=== PATIENT | female | born 1990 | race Caucasian/White ===

== ENCOUNTER → 2021-08-01 | Day surgery (SDC) | payer OTHER ==
[~2021-08-01] VITALS: Ht 152.4 cm; Wt 63.5 kg
[2021-08-01 09:43] LABS: BASOPHIL 1.1 % (0-2); EOSINOPHIL 3.2 % (0-5); HGB 13.8 g/dl (12.5-16.0); LYMPHOCYTE 30.2 % (15-48); MCH 30.7 pg (25.0-31.0); MCHC 33.7 g/dL (32.0-36.0); MCV 91.3 fL (78.0-100.0); MONOCYTE 5.4 % (0-12); MPV 9.4 fL (6.0-9.5); NEUTROPHIL 59.9 % (41-80); NRBC 0; PLT 277 K/uL (150-400); RBC 4.49 M/uL (4.20-5.40); RDW 12.4 % (11.5-14.0); WBC 5.6 K/uL (4.0-10.5)
== END | disposition home or self-care (01) ==
LOC: FAS 08:59
PROVIDERS: Oral & Maxillofacial Surgery
DX: K01.1 Impacted teeth (principal); K02.9 Dental caries, unspecified; K04.7 Periapical abscess without sinus
CPT/HCPCS: D7140 ×6; D7210 ×5; D7240 ×6; D7310; 36415; 84703; 85025; J1100; J1170; J1885; J2250; J2405; J2704; J3010; J7120